=== PATIENT | female | born 1945 | race Caucasian/White ===

== ENCOUNTER 2020-10-13 13:27 | Emergency (ER) | payer OTHER, SELFPAY ==
--- NOTE | 2020-10-13 13:37 | ED.URI ---
HPI - URI/Sore Throat General Chief Complaint: Upper Respiratory Infection Stated Complaint: Coughing, pain when breathing, loss of voice Time Seen by Provider: 10/13/20 14:12 Source: patient and RN notes reviewed Mode of arrival: ambulatory Limitations: no limitations History of Present Illness HPI Narrative: 75-year-old female presents with concern for cough, hoarse voice. Reports symptoms started overnight. Reports she has been stressed lately and has been staying at night taking care of her elderly father. She denies any fever, shortness of breath, body aches, chills, sweats, rhinorrhea, nasal congestion. Reports she was vaccinated for Covid. Denies known sick contacts. MD elicited complaint: cough Related Data Home Medications Medication Instructions Recorded Confirmed duloxetine mg PO 10/13/20 gabapentin 10/13/20 losartan 25 mg PO BID 10/13/20 10/13/20 metformin 10/13/20 naproxen sodium [Aleve] 220 mg PO BID 10/13/20 10/13/20 Allergies Allergy/AdvReac Type Severity Reaction Status Date / Time iohexol Allergy Hives Verified 10/13/20 14:20 [From contrast - CT, X-RAY] Penicillins Allergy Hives Verified 10/13/20 14:19 codeine AdvReac Nausea and Verified 10/13/20 14:19 Vomiting Review of Systems Review of Systems: CONSTITUTIONAL: Denies malaise, chills, sweats, or fever. EYES: Denies visual changes, redness, or discharge. ENT: Denies rhinorrhea, congestion, sinus pain, otalgia and sore throat.. Reports hoarse voice CARDIOVASCULAR: Denies chest pain, palpitations, or edema. RESPIRATORY: Reports cough. Denies dyspnea. GASTROINTESTINAL: Denies abdominal pain, nausea, vomiting, diarrhea SKIN: Denies rash or itching. MUSCULOSKELETAL: Denies myalgia. NEUROLOGIC: Denies headache. All systems reviewed & are unremarkable except as noted in HPI and below PMFSH Comments At time of signature, agree with nursing past medical, surgical, social and family history. There is no relevant family history pertinent to the presenting complaint Exam Narrative: GENERAL: Well-appearing, well-nourished, and in no acute distress. HEAD: Normocephalic EYES: PERRLA, conjunctivae clear ENT: Nares clear. Mucous membranes moist. TM pearly good with dull light reflex bilaterally; no tragal tenderness. Oropharynx not erythematous without lesions. Tonsils not enlarged and without exudate, no drooling, no trismus, uvula midline. Slight hoarse voice noted NECK: Supple. No lymphadenopathy CHEST: Clear to auscultation, breath sounds equal. No wheezing, rhonchi, rales, or stridor. No respiratory distress, speaks in full sentences. HEART: Regular rate and rhythm. No murmur heard. SKIN: Warm, dry, no rash. NEURO: Alert and oriented x3. PSYCH: Normal mood and affect Course Course Emergency Course: Patient is aware of diagnosis, understands and agrees to treatment plan. Anticipatory guidance given. Patient agrees to follow-up as directed and is aware of reasons to seek care at the emergency department. Portions of this record may have been created with voice recognition software Vital Signs Vital signs: Vital Signs Temperature 98.3 F 10/13/20 13:50 Pulse Rate 80 10/13/20 13:50 Respiratory Rate 20 10/13/20 13:50 Blood Pressure 140/64 10/13/20 13:50 Pulse Oximetry 97 10/13/20 13:50 Temperature 98.3 F 10/13/20 13:50 Pulse Rate 80 10/13/20 13:50 Respiratory Rate 20 10/13/20 13:50 Blood Pressure 140/64 10/13/20 13:50 Pulse Oximetry 97 10/13/20 13:50 Reviewed. MDM - URI/Sore Throat MDM Narrative Medical decision making narrative: Differential diagnosis considered: Ellis virus, strep pharyngitis, allergic rhinitis, upper respiratory tract infection, sinusitis, rhinosinusitis, nasopharyngitis. viral pharyngitis, otitis media, otitis externa, pneumonia, bronchitis, viral cough syndrome, viral syndrome, and influenza. Exam findings show no acute concerns or changes; patient is non-toxic appearing a
[2020-10-13 13:50] VITALS: BP 140/64; PULSE 80; RESP 20; TEMP 36.8; O2SAT 97
== END 2020-10-13 14:39 | disposition home or self-care (01) ==
PROVIDERS: Emergency Provider Nurse Practitioner
DX: J04.0 Acute laryngitis (principal); R05 Cough; Z20.822 Contact with and (suspected) exposure to COVID-19; I10 Essential (primary) hypertension; E11.9 Type 2 diabetes mellitus without complications; F41.9 Anxiety disorder, unspecified
CPT/HCPCS: 87426; 99213; C9803; G0463